=== PATIENT | male | born 1945 | race Caucasian/White ===

== ENCOUNTER 2020-03-13 02:36 | Emergency (ER) | payer MEDICARE, BC, SELFPAY ==
--- NOTE | 2020-03-13 | ECG_ITS ---
Test Reason : WEAKNESS Blood Pressure : / mmHG Vent. Rate : 076 BPM Atrial Rate : 076 BPM P-R Int : 162 ms QRS Dur : 148 ms QT Int : 410 ms P-R-T Axes : 048 -20 -05 degrees QTc Int : 461 ms Sinus rhythm with Premature atrial complexes Right bundle branch block Abnormal ECG No previous ECGs available Referred By: Generic ED Physician Electronically Signed By:NIMESH MARIE
--- NOTE | 2020-03-13 | XR_ITS ---
EXAMINATION: XR CHEST CLINICAL INFORMATION: weakness, covid + COMPARISON: None TECHNIQUE: Frontal view of the chest was obtained. FINDINGS: Cardiac leads overlie the chest. Multiple patchy airspace opacities are present in both lungs. There is dense opacification in the right infrahilar region. Possible trace pleural effusions. No pneumothorax. Cardiac silhouette is within normal limits in size. Mediastinal contour appears normal. No acute osseous findings. Osteoarthritis is present in the acromioclavicular and glenohumeral joints. Degenerative spondylosis is present in the thoracic spine. XR/XR chest 1V IMPRESSION: 1. Patchy multifocal airspace opacities as can be seen with viral pneumonia. The right infrahilar opacification is particularly dense. Continued follow-up radiographs are advised to verify resolution. 2. Probable trace pleural effusions.
[2020-03-13 02:46] VITALS: BP 118/75; PULSE 80; RESP 15; TEMP 37.8; O2SAT 94; BMI 28.3
[2020-03-13 03:20] LABS: Basophils Percent Auto 0.2 % (0-2); Eosinophils Percent Auto 0.2 % (0-4); Hematocrit 41.3 % (42-52); Hemoglobin 14.1 g/dl (14.0-18.0); Imm Gran Abs Auto 0.01 X10*3/uL (0.00-0.03); Imm Gran Pct Auto 0.2 % (0.0-0.4); Lymphocytes Absolute Auto 0.4 X10*3/uL (1.2-4.9); Lymphocytes Percent Auto 6.8 % (20-40); MANUAL DIFF FLAG SCAN; Mean Corpuscular HGB Conc 34.1 g/dl (31.0-36.0); Mean Corpuscular Hemoglobin 30.3 pg (27.0-33.0); Mean Corpuscular Volume 88.8 fL (80-98); Mean Platelet Volume 10.5 fL (9.4-12.4); Monocytes Absolute Auto 0.4 X10*3/uL (0.1-1.2); Neutrophils Absolute Auto 4.4 X10*3/uL (2.0-8.3); Neutrophils Percent Auto 85.6 % (45-73); Platelet Count 146 X10*3/uL (160-400); Red Blood Count 4.65 X10*6/uL (4.60-5.80); Red Cell Distribution Width 13.1 % (11.0-16.0); SCAN SMEAR FLAG 1; White Blood Count 5.2 X10*3/uL (4.8-10.8)
--- NOTE | 2020-03-13 03:20 | ED_ITS ---
HPI - Weakness General Chief complaint: Weakness Stated complaint: COVID + WEAKNESS Time Seen by Provider: 03/13/20 03:19 Source: patient Mode of arrival: ambulatory History of Present Illness HPI Narrative: This is a 74-year-old male without significant past medical history who presents with increasing weakness but denies any fevers, chills, GI symptoms, shortness of breath, chest pain/palpitations, or symptoms. Patient states that he and his for tested on Sunday and found to be COVID-19 positive. Related Data Allergies Allergy/AdvReac Type Severity Reaction Status Date / Time No Known Allergies Allergy Verified 03/13/20 04:36 Review of Systems Review of Systems: Pertinent positives and negatives as stated in HPI and 10 point review systems is otherwise negative. [facility] Past Medical History Source: nursing notes reviewed Social History Social History Smoking Status: Never smoker Use of substances other than those prescribed or required for medical reasons: No Advance Directives: No Advance Directives Information Provided: No Physical Exam Vital Signs: Vital Signs: Last Vital Signs Temp 100.0 F 03/13/20 02:46 Pulse 68 03/13/20 06:44 Resp 16 03/13/20 06:44 BP 113/64 03/13/20 06:44 Pulse Ox 94 03/13/20 06:44 Body Mass Index 28.3 VITAL SIGNS: Reviewed. GENERAL: Well developed, well nourished, in no acute distress. NOSE: Nares patent bilateral OROPHARYNX: no oral lesions noted NECK: Supple, no adenopathy LUNGS: Normal breath sounds, no tachypnea, or increased work of breathing. SpO2<90-91% on room air > comes up to 94% on 2 L of nasal cannula CARDIOVASCULAR: Regular rate and rhythm without noted murmurs, no JVD or lower extremity edema. ABDOMEN: Soft, non-tender, non-distended with bowel sounds. NEUROLOGIC: Alert and oriented x 4. Strength and sensation to light touch were grossly intact x 4. Course Course Course Narrative: This is a 74-year-old male with history and clinical presentation consistent with sequela from COVID-19 positivity and new oxygen requirement. Chest x-ray shows bilateral patchy opacities consistent with known diagnosis of COVID-19. Attempts to trial the patient off of oxygen were unsuccessful with a decrease to 90-91% on room air. Patient was then placed back on supplemental oxygen. Review of all investigations is negative for any evidence systemic infection and noted bilateral patchy opacities consistent with a COVID-19 infection, but there is mention of a ?particularly dense infrahilar are opacifications?, however there is no corresponding leukocytosis. This case was discussed with the inpatient hospitalist who was agreeable for admission as acute respiratory failure with hypoxia secondary to COVID-19. MDM - Weakness Lab Data Result diagrams: 03/13/20 03:09 03/13/20 03:09 Labs: Lab Results 03/13/20 03/13/20 03/13/20 Range/Units 03:08 03:09 03:09 WBC 5.2 (4.8-10.8) X10*3/uL RBC 4.65 (4.60-5.80) X10*6/uL Hgb 14.1 (14.0-18.0) g/dl Hct 41.3 L (42-52) % MCV 88.8 (80-98) fL MCH 30.3 (27.0-33.0) pg MCHC 34.1 (31.0-36.0) g/dl RDW 13.1 (11.0-16.0) % Plt Count 146 L (160-400) X10*3/uL MPV 10.5 (9.4-12.4) fL Immature Gran % (Auto) 0.2 (0.0-0.4) % Neut % (Auto) 85.6 H (45-73) % Lymph % (Auto) 6.8 L (20-40) % [place] % (Auto) 7.0 (2-11) % Eos % (Auto) 0.2 (0-4) % Baso % (Auto) 0.2 (0-2) % Lymph # (Auto) 0.4 L (1.2-4.9) X10*3/uL [place] # (Auto) 0.4 (0.1-1.2) X10*3/uL Eos # (Auto) 0.0 (0.0-0.4) X10*3/uL Baso # (Auto) 0.0 (0.0-0.2) X10*3/uL Abs Immat Gran (auto) 0.01 (0.00-0.03) X10*3/uL Absolute Neuts (auto) 4.4 (2.0-8.3) X10*3/uL Absolute Nucleated RBC 0.000 (0.0-0.012) X10*3/uL Nucleated RBC % (auto) 0.0 (0.0-0.2) /100WBC Smear Tech's Comments VERIFIED Hold Blue Top SEE NOTE Sodium (135-145) mmol/L Potassium (3.3-5.1) mmol/l Chloride (96-108) mmol/L Carbon Dioxide (22-29) mmol/L Anion Gap (12-20) BUN (9-16) mg/dL Creatinine (0.5-1.4) mg/dL Estim Creat Clear Calc Estimated GFR Random Glucose (60-115) mg/dL Lactic Acid 1.1 (0.5-2.0) mmol/L Calcium (8.4-10.2) mg/dL Total Bilirubin (0.0-1.0) mg/dL AST (5-37) U/L ALT (0-40) U/L Alkaline Phosphatase (39-117) U/L Lactate Dehydrogenase (118-273) U/L Troponin I High Sens (<3.5-35.0) ng/L C-Reactive Protein (< or = 0.50) mg/dL Total Protein (6.5-8.0) g/dL Albumin (3.5-5.0) g/dL 03/13/20 03/13/20 03/13/20 Range/Units 03:09 03:10 06:43 WBC (4.8-10.8) X10*3/uL RBC (4.60-5.80) X10*6/uL Hgb (14.0-18.0) g/dl Hct (42-52) % MCV (80-98) fL MCH (27.0-33.0) pg MCHC (31.0-36.0) g/dl RDW (11.0-16.0) % Plt Count (160-400) X10*3/uL MPV (9.4-12.4) fL Immature Gran % (Auto) (0.0-0.4) % Neut % (Auto) (45-73) % Lymph % (Auto) (20-40) % [place] % (Auto) (2-11) % Eos % (Auto) (0-4) % Baso % (Auto) (0-2) % Lymph # (Auto) (1.2-4.9) X10*3/uL [place] # (Auto) (0.1-1.2) X10*3/uL Eos # (Auto) (0.0-0.4) X10*3/uL Baso # (Auto) (0.0-0.2) X10*3/uL Abs Immat Gran (auto) (0.00-0.03) X10*3/uL Absolute Neuts (auto) (2.0-8.3) X10*3/uL Absolute Nucleated RBC (0.0-0.012) X10*3/uL Nucleated RBC % (auto) (0.0-0.2) /100WBC Smear Tech's Comments Hold Blue Top Sodium 138 (135-145) mmol/L Potassium 3.8 (3.3-5.1) mmol/l Chloride 103 (96-108) mmol/L Carbon Dioxide 25 (22-29) mmol/L Anion Gap 14 (12-20) BUN 11 (9-16) mg/dL Creatinine 0.71 (0.5-1.4) mg/dL Estim Creat Clear Calc 112.2 Estimated GFR > 60 Random Glucose 124 H (60-115) mg/dL Lactic Acid (0.5-2.0) mmol/L Calcium 7.9 L (8.4-10.2) mg/dL Total Bilirubin 0.7 (0.0-1.0) mg/dL AST 22 (5-37) U/L ALT 17 (0-40) U/L Alkaline Phosphatase 61 (39-117) U/L Lactate Dehydrogenase 238 (118-273) U/L Troponin I High Sens 6.7 8.4 (<3.5-35.0) ng/L C-Reactive Protein 7.31 H (< or = 0.50) mg/dL Total Protein 6.0 L (6.5-8.0) g/dL Albumin 3.8 (3.5-5.0) g/dL ECG Data Attestation: I personally reviewed and interpreted this ECG as follows: Prior ECG tracings: not available for review Interpretation: Sinus rhythm, HR-76, RBBB, no evidence of acute ischemia, OR/QTC are within normal limits. Discharge Plan Discharge Clinical Impression: Acute hypoxemic respiratory failure due to COVID-19 Patient Disposition: Admitted As Inpatient
--- NOTE | 2020-03-13 03:27 | PC.NURSE ---
Pt placed on monitor, NSR. EKG obtained, iv access obtained labs drawn and sent, results pending. per pt, diagnosed with covid on Sunday, has felt increasingly weak since, fevers at home, denies any other symptoms, spo2 92-94% on room air, placed on 2l o2 via nc. Awaiting primary eval at this time.
[2020-03-13 03:38] LABS: Lactic Acid 1.1 mmol/L (0.5-2.0)
[2020-03-13 03:44] LABS: Alanine Aminotransferase 17 U/L (0-40); Albumin Level 3.8 g/dL (3.5-5.0); Alkaline Phosphatase 61 U/L (39-117); Anion Gap 14 (12-20); Aspartate Amino Transferase 22 U/L (5-37); Bilirubin Total 0.7 mg/dL (0.0-1.0); Blood Urea Nitrogen 11 mg/dL (9-16); Calcium 7.9 mg/dL (8.4-10.2); Carbon Dioxide 25 mmol/L (22-29); Chloride 103 mmol/L (96-108); Creatinine Clr Calc Pharmacy 112.2; Estimated Glomerular Filt Rate > 60; Glucose Random 124 mg/dL (60-115); Potassium 3.8 mmol/l (3.3-5.1); Sodium 138 mmol/L (135-145)
[2020-03-13 03:46] LABS: Troponin-I High Sensitivity 6.7 ng/L (<3.5-35.0)
[2020-03-13 04:17] LABS: SLIDE REVIEW VERIFIED
[2020-03-13 06:44] VITALS: BP 113/64; PULSE 68; RESP 16; O2SAT 94
--- NOTE | 2020-03-13 06:51 | PC.NURSE ---
Pt trialed off oxygen and was found to be 91-92% on room air while lying in bed. MD aware, plan for admission.
--- NOTE | 2020-03-13 07:10 | PC.NURSE ---
received report from otis holt
[2020-03-13 07:16] LABS: Troponin-I High Sensitivity 8.4 ng/L (<3.5-35.0)
[2020-03-13 07:26] LABS: C Reactive Protein 7.31 mg/dL (< or = 0.50); Lactate Dehydrogenase 238 U/L (118-273)
[2020-03-13 07:50] LABS: Procalcitonin 0.06 ng/mL
--- NOTE | 2020-03-13 07:54 | PC.NURSE ---
pt alert and oriented, sitting on the edge of the bed, sating at 93% on 2l, denies pain and sob, ls clear in all bass, ns on the monitor. pt aware of plan to admit to the hospital. pt states not having much of a apatite but he will attempt to eat his breakfast
[2020-03-13 08:04] VITALS: BP 123/66; PULSE 81; RESP 18; O2SAT 95
[2020-03-13 09:14] LABS: Influenza A PCR NEGATIVE (Negative); Influenza B PCR NEGATIVE (Negative); Resp Syncy Virus RNA Qual PCR NEGATIVE (Negative)
[2020-03-13 09:17] LABS: SARS COV2 PCR INHOUSE POSITIVE (Negative)
[2020-03-13] MEDS: Acetaminophen 325 MG TABLET 650 MG PO (09:39)
[2020-03-13 09:53] VITALS: O2SAT 93
--- NOTE | 2020-03-13 09:54 | PC.NURSE ---
pt taken off the nasal cannual, sating at 93% room air, incentive spirometry explained and pt used without any difficulties
[2020-03-13] MEDS: dexAMETHasone 6 MG TABLET PO (11:19)
== END 2020-03-13 11:24 | disposition home or self-care (01) ==
PROVIDERS: Emergency Provider Student in an Organized Health Care Education/Training Program
DX: U07.1 COVID-19 (principal); J96.01 Acute respiratory failure with hypoxia
CPT/HCPCS: 0241U; 36415; 71045; 80053; 83605; 83615; 84145; 84484; 85025; 86140; 87040; 93005; 99284; 99285; J8540